=== PATIENT | male | born 1995 | race Caucasian/White ===

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

== ENCOUNTER 2020-02-29 14:23 | Emergency (ER) | payer MEDICAID, SELFPAY ==
[~2020-02-29] VITALS: Ht 170.2 cm; Wt 69.9 kg
[2020-02-29 14:47] VITALS: BP 124/44
--- NOTE | 2020-02-29 14:50 | NUR ---
TENT2
--- NOTE | 2020-02-29 14:50 | NUR ---
C/O COUGH, FEVEWR, LOSS OF TASTE/SMELL, BODY ACHES X 1 WEEK. MOTHER IN LAW COVID TESTED + 1 WEEK AGO.
--- NOTE | 2020-02-29 15:20 | NUR ---
PATIENT DISCHARGED WITH WRONG NAME ON PRESCRIPTION PAPER, RECONTACTED TO COME BACK AND GET ACCURATE PRESCRIPTION, LEFT VOICEMAIL.
--- NOTE | 2020-02-29 15:20 | NUR ---
COVID SWAB COLLECTED AND SENT TO LAB
--- NOTE | 2020-02-29 15:20 | NUR ---
Patient discharged with v/s stable. Written and verbal after care instructions given and explained. Patient alert, oriented and verbalized understanding of instructions. Ambulatory with steady gait. All questions addressed prior to discharge. ID band removed. Patient advised to follow up with PMD. Rx of NAPROSYN, ACETAMINOPHEN given. Patient educated on indication of medication including possible reaction and side effects. Opportunity to ask questions provided and answered.
[2020-02-29 15:31] VITALS: BP 124/44
--- NOTE | 2020-03-02 00:59 | NUR ---
Covid results received from lab. Results = positve. Hard copy requested from lab and placed in infection controls mailbox.
== END 2020-02-29 15:20 | disposition home or self-care (01) ==
LOC: MED 14:23
DX: M79.10 Myalgia, unspecified site (principal); Z20.828 Contact with and (suspected) exposure to other viral communicable diseases
CPT/HCPCS: 99283; U0003